=== PATIENT | female | born 1985 | race Caucasian/White ===

== ENCOUNTER 2021-01-28 12:50 | Emergency (ER) | payer BC ==
--- NOTE | 2021-01-28 14:06 | EDM.PDOC ---
ED HPI GENERAL MEDICAL PROBLEM - General Chief Complaint: Lower Extremity Injury/Pain Stated Complaint: [id number] LEFT FOOT TWISTED AND FELL ON ROCKS Time Seen by Provider: 01/28/21 13:40 Source of Information: Reports: Patient, RN, RN Notes Reviewed History Limitations: Reports: No Limitations - History of Present Illness INITIAL COMMENTS - FREE TEXT/NARRATIVE: Pt presents to ER with c/o fall on the rocks while fishing earlier today with pain and swelling to the left foot and ankle. Pt states she twisted the ankle, but has pain down the lateral 1/3 of the foot to the base of toes 3-5. Denies any other injury. Pt rates the pain 7/10. Nothing alleviates or aggravates the pain. Onset: Today, Sudden Duration: Constant Location: Reports: Lower Extremity, Left Quality: Reports: Ache Severity: Moderate Improves with: Reports: Immobilization, Rest Worsens with: Reports: Movement (and Wt bearing) Associated Symptoms: Reports: No Other Symptoms Left Ankle Pain Score (Numeric/FACES): 7 - Related Data Allergies Allergy/AdvReac Type Severity Reaction Status Date / Time latex Allergy Cannot Verified 01/28/21 13:42 Remember Home Meds: Home Meds LORazepam [Ativan] 0.5 mg PO TID PRN 01/28/21 [History] Methylphenidate [Metadate ER] 10 mg PO .1200 01/28/21 [History] Methylphenidate [Metadate ER] 20 mg PO .0800 01/28/21 [History] Prazosin HCl [Prazosin] 7 mg PO BEDTIME 01/28/21 [History] Zolpidem [Ambien] 10 mg PO BEDTIME 01/28/21 [History] cephALEXin [Keflex] 500 mg PO QID 01/28/21 [History] fluvoxaMINE [fluvoxaMINE Maleate] 100 mg PO BID 01/28/21 [History] lamoTRIgine [Lamictal] 100 mg PO DAILY 01/28/21 [History] Past Medical History Endocrine/Metabolic History: Reports: Obesity/BMI 30+ Social & Family History - Family History Family Medical History: No Pertinent Family History - Living Situation & Occupation Living situation: Reports: with Family Review of Systems - Review of Systems Review Of Systems: Comprehensive ROS is negative, except as noted in HPI. ED EXAM, GENERAL - Physical Exam Exam: See Below Exam Limited By: No Limitations General Appearance: Alert, WD/WN, No Apparent Distress, Obese Head: Atraumatic, Normocephalic Neck: Normal Inspection Respiratory/Chest: No Respiratory Distress Cardiovascular: Normal Peripheral Pulses Back Exam: Full Range of Motion Extremities: Normal Range of Motion, No Pedal Edema, Normal Capillary Refill, Joint Swelling (Left lateral ankle), Other (Tender to palpation at left lateral ankle and foot overlying the lateral foot to the base of toes 3-5.). No: Mottled, Pallor, Redness Neurological: Alert, Oriented, No Motor/Sensory Deficits Psychiatric: Normal Mood Skin Exam: Warm, Dry, Intact, Normal Color, No Rash Course - Vital Signs Last Recorded V/S: Last Vital Signs Temp 97.8 F 01/28/21 13:46 Pulse 77 01/28/21 13:46 Resp 20 01/28/21 13:46 BP 125/74 01/28/21 13:46 Pulse Ox 96 01/28/21 13:46 - Orders/Labs/Meds Orders: Active Orders 24 hr Category Date Time Status Harjinder Bandage [RC] ONETIME Care 01/28/21 14:44 Ordered DME for Discharge [COMM] Routine Oth 01/28/21 14:44 Ordered Meds: Medications Discontinued Medications Generic Name Dose Route Start Last Admin Trade Name Arenq PRN Reason Stop Dose Admin Ibuprofen 800 mg 01/28/21 14:44 Ibuprofen 800 Mg Tab PO 01/28/21 14:45 ONETIME ONE - Radiology Interpretation Free Text/Narrative:: [facility] Final Radiology Report Call: [phone] assistance Online chat: [email or web address] Name: MIKEY BROOKS Age: 35Years F Date: 01/28/2021 SSN: -- : [id number] Study: CR ANKLE MIN 3V LT Requesting Physician: SUAP JUNE Images: 3 Addl Studies: Provided Clinical History: Left ankle injury, fell on a rock Contrast: Contrast Medium: Contrast Amount: Contrast Method: CONFIDENTIALITY STATEMENT This report is intended only for use by the referring physician, and only in accordance with law. If you received this in error, call [phone]. Page 1 of 1 PROCEDURE INFORMATION: Exam: XR Left Ankle Exam date and time: 01/28/2021 2:09 PM Age: 35 years old Clinical indication: Other: Left ankle injury, fell on a rock TECHNIQUE: Imaging protocol: XR Left ankle. Views: 3 or more views. COMPARISON: No relevant prior studies available. FINDINGS: Bones/joints: There is no evidence of acute fracture. There is no evidence of joint malalignment or dislocation. Soft tissues: There are no soft tissue masses or fluid collections. IMPRESSION: 1. No evidence of acute fracture. 2. No evidence of acute dislocation. Thank you for allowing us to participate in the care of your patient. Dictated and Authenticated by: Zaid Real DO 01/28/2021 2:39 PM Central Time ([place] & [place]) [facility] Final Radiology Report Call: [phone] assistance Online chat: [email or web address] Name: MIKEY BROOKS Age: 35Years F Date: 01/28/2021 SSN: -- : [id number] Study: CR FOOT COMP MIN 3V LT Requesting Physician: SUPA JUNE Images: 3 Addl Studies: Provided Clinical History: Left foot injury, pain at lateral foot Contrast: Contrast Medium: Contrast Amount: Contrast Method: CONFIDENTIALITY STATEMENT This report is intended only for use by the referring physician, and only in accordance with law. If you received this in error, call [phone]. Page 1 of 1 PROCEDURE INFORMATION: Exam: XR Left Foot Exam date and time: 01/28/2021 2:14 PM Age: 35 years old Clinical indication: Other: Left foot injury, fell on a rock; Additional info: Left foot injury, pain at lateral foot TECHNIQUE: Imaging protocol: XR Left foot. Views: 3 or more views. COMPARISON: CR Ankle Min 3V Lt 01/28/2021 2:09 PM FINDINGS: Bones/joints: There is no evidence of acute fracture. There is no evidence of joint malalignment or dislocation. Soft tissues: There are no soft tissue masses or fluid collections. IMPRESSION: 1. No evidence of acute fracture. 2. No evidence of acute dislocation. Thank you for allowing us to participate in the care of your patient. Dictated and Authenticated by: Zaid Real DO 01/28/2021 2:40 PM Central Time ([place] & [place]) Departure - Departure Time of Disposition: 14:46 Disposition: Home, Self-Care 01 Condition: Good Clinical Impression: Left ankle sprain Qualifiers: Encounter type: initial encounter Involved ligament of ankle: unspecified ligament Qualified Code(s): S93.402A - Sprain of unspecified ligament of left ankle, initial encounter Sprain of left foot Qualifiers: Encounter type: initial encounter Qualified Code(s): S93.602A - Unspecified sprain of left foot, initial encounter - Discharge Information *PRESCRIPTION DRUG MONITORING PROGRAM REVIEWED*: Not Applicable *COPY OF PRESCRIPTION DRUG MONITORING REPORT IN PATIENT SHAHEED: Not Applicable Instructions: Ankle Sprain, [id number], Foot Sprain Forms: ED Department Discharge Additional Instructions: Rest, ice pack, and elevate left foot to reduce pain and swelling. Use Tylenol and/or Ibuprofen as needed for pain. HARJINDER wrap and crutches as needed for comfort for 5 to 7 days. Follow up in clinic for recheck if not improving in 7 days as expected. Sepsis Event Note (ED) - Focused Exam Vital Signs: Vital Signs Temp Pulse Resp BP Pulse Ox 01/28/21 13:46 97.8 F 77 20 125/74 96 - My Orders Last 24 Hours: My Active Orders 01/28/21 14:44 Harjinder Bandage [RC] ONETIME DME for Discharge [COMM] Routine - Assessment/Plan Last 24 Hours: My Active Orders 01/28/21 14:44 Harjinder Bandage [RC] ONETIME DME for Discharge [COMM] Routine
--- NOTE | 2021-01-28 14:40 | CR ---
PROCEDURE INFORMATION: Exam: XR Left Foot Exam date and time: 01/28/2021 2:14 PM Age: 35 years old Clinical indication: Other: Left foot injury, fell on a rock; Additional info: Left foot injury, pain at lateral foot TECHNIQUE: Imaging protocol: XR Left foot. Views: 3 or more views. COMPARISON: CR Ankle Min 3V Lt 01/28/2021 2:09 PM FINDINGS: Bones/joints: There is no evidence of acute fracture. There is no evidence of joint malalignment or dislocation. Soft tissues: There are no soft tissue masses or fluid collections. IMPRESSION: 1. No evidence of acute fracture. 2. No evidence of acute dislocation.
--- NOTE | 2021-01-28 14:40 | CR ---
PROCEDURE INFORMATION: Exam: XR Left Ankle Exam date and time: 01/28/2021 2:09 PM Age: 35 years old Clinical indication: Other: Left ankle injury, fell on a rock TECHNIQUE: Imaging protocol: XR Left ankle. Views: 3 or more views. COMPARISON: No relevant prior studies available. FINDINGS: Bones/joints: There is no evidence of acute fracture. There is no evidence of joint malalignment or dislocation. Soft tissues: There are no soft tissue masses or fluid collections. IMPRESSION: 1. No evidence of acute fracture. 2. No evidence of acute dislocation.
[2021-01-28] MEDS ORDERED: Ibuprofen 800 MG Tab PO ONE (14:44)
== END 2021-01-28 15:07 | disposition home or self-care (01) ==
LOC: DL.ED 12:50
DX: S93.402A Sprain of unspecified ligament of left ankle, initial encounter (principal); S93.602A Unspecified sprain of left foot, initial encounter; E66.9 Obesity, unspecified; Z68.43 Body mass index [BMI] 50.0-59.9, adult; Z91.040 Latex allergy status; Z79.899 Other long term (current) drug therapy; X50.1XXA Overexertion from prolonged static or awkward postures, initial encounter
CPT/HCPCS: 73610-LT; 73630-LT; 99282; 99283; A9270-GY